=== PATIENT | male | born 1945 | race Caucasian/White ===

== ENCOUNTER 2023-02-13 22:24 | Emergency (ER) | payer OTHER ==
[~2023-02-13] VITALS: Ht 165.1 cm; Wt 75.3 kg
[2023-02-13 22:32] VITALS: BP_SYST 114
[2023-02-13] MEDS ORDERED: KETOROLAC TROMETHAMINE 30 MG VIAL IVP ONE (22:45)
[2023-02-13 23:09] LABS: EOSINOPHILS # (AUTO) 0.1 K/uL (0.0-0.4); EOSINOPHILS % (AUTO) 2.2 % (0.0-4.0); HEMOGLOBIN 12.8 g/dL (14.0-18.0); LYMPHOCYTES # (AUTO) 1.8 K/uL (1.0-5.5); LYMPHOCYTES % (AUTO) 41.6 % (20.5-51.5); MEAN CORPUSCULAR HEMOGLOBIN 30 pg (27-31); MEAN CORPUSCULAR HGB CONC 34 % (32-36); MEAN CORPUSCULAR VOLUME 88 fL (79.0-98.0); MONOCYTES # (AUTO) 0.3 K/uL (0.0-1.0); MONOCYTES % (AUTO) 6.7 % (1.7-9.3); NEUTROPHILS # (AUTO) 2.1 K/uL (1.8-7.7); NEUTROPHILS % (AUTO) 48.5 % (40.0-70.0); PLATELET COUNT (AUTO) 202 K/uL (130-430); RED BLOOD CELL COUNT(AUTO) 4.33 MIL/uL (4.2-6.2); RED CELL DISTRIBUTION WIDTH 14.2 % (9.0-15.0); WHITE BLOOD COUNT (AUTO) 4.3 K/uL (4.8-10.8)
[2023-02-13 23:19] LABS: ANION GAP 8 (5-15); CALCIUM 8.6 mg/dL (8.4-11.0); CHLORIDE 100 mmol/L (98-107); CREATININE 1.22 mg/dL (0.55-1.30); GLUCOSE 223 mg/dL (70-99); UREA NITROGEN, BLOOD 18 mg/dL (8-21)
[2023-02-13 23:24] LABS: ALANINE AMINOTRANSFERASE 22 U/L (12-78); ALBUMIN 3.6 g/dL (3.4-4.8); ASPARTATE AMINOTRANSFERASE 16 U/L (10-37); TOTAL BILIRUBIN 0.4 mg/dL (0.0-1.0)
[2023-02-13 23:50] LABS: BILIRUBIN,URINE NEGATIVE (NEGATIVE); BLOOD, URINE NEGATIVE (NEGATIVE); COLOR,URINE YELLOW (YELLOW); GLUCOSE,URINE NEGATIVE (NEGATIVE); KETONES,URINE NEGATIVE (NEGATIVE); LEUKOCYTE ESTERASE ,URINE NEGATIVE (NEGATIVE); NITRITE, URINE NEGATIVE (NEGATIVE); PROTEIN URINE NEGATIVE (NEGATIVE); UROBILINOGEN,URINE 0.2 (0.2-1.0)
[2023-02-13 23:52] LABS: CLARITY/URINE CLEAR (CLEAR)
[2023-02-14] MEDS ORDERED: NAPR-1172 PO (00:59)
[2023-02-14 01:15] VITALS: BP_SYST 142
== END 2023-02-14 01:15 | disposition home or self-care (01) ==
LOC: SED 22:24
DX: M51.36 Other intervertebral disc degeneration, lumbar region (principal); M54.50 Low back pain, unspecified; G89.29 Other chronic pain; E11.9 Type 2 diabetes mellitus without complications; Z79.899 Other long term (current) drug therapy
CPT/HCPCS: 99285; 96374; 72131; 80053; 85025; 36415; 76376; 81003; J1885

== ENCOUNTER 2024-01-18 21:13 | Emergency (ER) | payer OTHER ==
[~2024-01-18] VITALS: Ht 165.1 cm; Wt 78.9 kg
[~2024-01-18 21:13] MED LIST: NAPR-1172 PO
[2024-01-18 21:20] VITALS: BP_SYST 99; PULSE 65; RESP 20; TEMP 97; O2SAT 98
[2024-01-18 22:24] LABS: BASOPHILS # (AUTO) 0.1 K/uL (0.0-0.2); EOSINOPHILS # (AUTO) 0.2 K/uL (0.0-0.4); EOSINOPHILS % (AUTO) 2.2 % (0.0-4.0); HEMATOCRIT 34.7 % (36-54); HEMOGLOBIN 11.9 g/dL (14.0-18.0); LYMPHOCYTES # (AUTO) 2.4 K/uL (1.0-5.5); LYMPHOCYTES % (AUTO) 34.1 % (20.5-51.5); MEAN CORPUSCULAR HEMOGLOBIN 30 pg (27-31); MEAN CORPUSCULAR HGB CONC 34 % (32-36); MEAN CORPUSCULAR VOLUME 87 fL (79.0-98.0); MONOCYTES # (AUTO) 0.5 K/uL (0.0-1.0); MONOCYTES % (AUTO) 7.1 % (1.7-9.3); NEUTROPHILS % (AUTO) 55.6 % (40.0-70.0); PLATELET COUNT (AUTO) 218 K/uL (130-430); RED BLOOD CELL COUNT(AUTO) 3.99 MIL/uL (4.2-6.2); RED CELL DISTRIBUTION WIDTH 14.8 % (9.0-15.0); WHITE BLOOD COUNT (AUTO) 7.1 K/uL (4.8-10.8)
[2024-01-18 22:34] LABS: ANION GAP 12 (5-15); CARBON DIOXIDE 27 mmol/L (23-29); CHLORIDE 104 mmol/L (98-107); CREATININE 1.51 mg/dL (0.55-1.30); GLUCOSE 112 mg/dL (74-106); POTASSIUM 4.5 mmol/L (3.5-5.1); SODIUM SERUM 143 mmol/L (136-145); UREA NITROGEN, BLOOD 29 mg/dL (8-21)
[2024-01-18 22:42] LABS: ALANINE AMINOTRANSFERASE 12 U/L (12-78); ALBUMIN 3.5 g/dL (3.4-4.8); ASPARTATE AMINOTRANSFERASE 10 U/L (10-37); TOTAL BILIRUBIN 0.3 mg/dL (0.0-1.0); TOTAL PROTEIN, SERUM 7.1 g/dL (6.4-8.3)
[2024-01-18] MEDS: NACL 0.9% 1,000 ML IV ONE (23:04)
[2024-01-19] MEDS: HYDROcodone/ACETAMIN 5-325 MG TAB (NORCO/ VICODIN) PO ONE (00:07)
[2024-01-19 00:39] VITALS: BP_SYST 133; PULSE 71; RESP 19; TEMP 97.7; O2SAT 95
== END 2024-01-19 00:39 | disposition home or self-care (01) ==
LOC: SED 21:13
DX: I95.9 Hypotension, unspecified (principal); E86.0 Dehydration; R42 Dizziness and giddiness; Z79.899 Other long term (current) drug therapy
CPT/HCPCS: 99284; 96360; 70450; 80053; 85025; 84484; 36415; 82948; J7030

== ENCOUNTER 2024-07-04 01:40 | Inpatient (IN) | payer OTHER ==
[~2024-07-04] VITALS: Ht 165.1 cm; Wt 78.9 kg
[2024-07-04 01:52] VITALS: BP_SYST 133; PULSE 74; RESP 18; TEMP 98.2; O2SAT 97
[2024-07-04] MEDS: KETOROLAC TROMETHAMINE 30 MG VIAL IM ONE (02:18)
[2024-07-04 02:26] LABS: BASOPHILS # (AUTO) 0.2 K/uL (0.0-0.2); BASOPHILS % (AUTO) 1.6 % (0.0-2.0); EOSINOPHILS # (AUTO) 0.1 K/uL (0.0-0.4); HEMATOCRIT 37.3 % (36-54); HEMOGLOBIN 12.9 g/dL (14.0-18.0); LYMPHOCYTES # (AUTO) 1.4 K/uL (1.0-5.5); LYMPHOCYTES % (AUTO) 14.6 % (20.5-51.5); MEAN CORPUSCULAR HEMOGLOBIN 30 pg (27-31); MEAN CORPUSCULAR HGB CONC 35 % (32-36); MEAN CORPUSCULAR VOLUME 88 fL (79.0-98.0); MONOCYTES # (AUTO) 0.5 K/uL (0.0-1.0); MONOCYTES % (AUTO) 4.8 % (1.7-9.3); NEUTROPHILS # (AUTO) 7.5 K/uL (1.8-7.7); PLATELET COUNT (AUTO) 229 K/uL (130-430); RED BLOOD CELL COUNT(AUTO) 4.26 MIL/uL (4.2-6.2); RED CELL DISTRIBUTION WIDTH 14.7 % (9.0-15.0); WHITE BLOOD COUNT (AUTO) 9.6 K/uL (4.8-10.8)
[2024-07-04 02:48] LABS: ALANINE AMINOTRANSFERASE 16 U/L (12-78); ANION GAP 8 (5-15); ASPARTATE AMINOTRANSFERASE 15 U/L (10-37); BILIRUBIN,DIRECT 0.1 mg/dL (0.0-0.3); CALCIUM 9.3 mg/dL (8.4-11.0); CARBON DIOXIDE 30 mmol/L (23-29); CHLORIDE 98 mmol/L (98-107); CREATININE 1.36 mg/dL (0.55-1.30); GLUCOSE 248 mg/dL (74-106); LIPASE 32 U/L (16-77); POTASSIUM 4.2 mmol/L (3.5-5.1); SODIUM SERUM 136 mmol/L (136-145); TOTAL BILIRUBIN 0.5 mg/dL (0.0-1.0); TOTAL PROTEIN, SERUM 7.9 g/dL (6.4-8.3); UREA NITROGEN, BLOOD 19 mg/dL (8-21)
[2024-07-04] MEDS: PIPERACILLIN/TAZO 3.375 GM in NS 50 ML IV ONE (04:03)
[2024-07-04] MEDS: MORPHINE 2 MG/ML INJ. SYRINGE IVP ONE (04:03)
[2024-07-04] MEDS ORDERED: PIPERACILLIN/TAZOBACTAM 3.375 GM/VIAL (ZOSYN) IV ONE (04:03)
[2024-07-04] MEDS ORDERED: TIZA-185 PO (07:29)
[2024-07-04] MEDS ORDERED: CLOP75TA32 PO (07:29)
[2024-07-04] MEDS ORDERED: INSU100I28 (07:29)
[2024-07-04] MEDS ORDERED: PANT40TA45 PO (07:29)
[2024-07-04] MEDS ORDERED: METF-381 PO (07:29)
[2024-07-04] MEDS ORDERED: CHOL500013 PO (07:29)
[2024-07-04] MEDS: D5/0.45 NS 1,000 ML IV STA (07:30)
[2024-07-04] MEDS ORDERED: NALOXONE HCL 0.4 MG/ML AMP (NARCAN) IVP PRN (08:00)
[2024-07-04] MEDS: MORPHINE 2 MG/ML INJ. SYRINGE IVP PRN (08:25)
[2024-07-04] MEDS ORDERED: LORazepam 2 MG/ML VIAL IVP PRN (08:30)
[2024-07-04] MEDS ORDERED: ONDANSETRON HCL 4 MG/2 ML VIAL IVP PRN (08:30)
[2024-07-04] MEDS: HYDROmorphone 2 MG/ML VIAL ONE (10:03)
[2024-07-04 11:27] LABS: PROTHROMBIN TIME 10.9 SECS (9.5-12.5)
[2024-07-04] MEDS: PANTOPRAZOLE SODIUM 40 MG TAB PO ONE (12:04)
[2024-07-04] MEDS ORDERED: INSULIN REGULAR, HUMAN 10 UNITS/0.1 ML, 3 ML VIAL ONE (12:10)
[2024-07-04 12:12] LABS: BILIRUBIN,URINE NEGATIVE (NEGATIVE); BLOOD, URINE NEGATIVE (NEGATIVE); CLARITY/URINE CLEAR (CLEAR); COLOR,URINE YELLOW (YELLOW); GLUCOSE,URINE TRACE (NEGATIVE); KETONES,URINE NEGATIVE (NEGATIVE); LEUKOCYTE ESTERASE ,URINE NEGATIVE (NEGATIVE); NITRITE, URINE NEGATIVE (NEGATIVE); PROTEIN URINE NEGATIVE (NEGATIVE); UROBILINOGEN,URINE 0.2 (0.2-1.0)
[2024-07-04] MEDS: INSULIN REGULAR, HUMAN 100 UNITS/ML, 3 ML VIAL (humuLIN R) SUBCUT PRN (12:12)
[2024-07-04] MEDS: PIPERACILLIN/TAZO 3.375/DEX-IS 50 ML IV SCH (13:00)
[2024-07-04] MEDS: CHOLECALCIFEROL (VITAMIN D3) 5,000 UNIT TABLET PO ONE (13:02)
[2024-07-04 14:46] VITALS: BP_SYST 146; PULSE 84; RESP 16; TEMP 100.9; TEMP 98.9; O2SAT 94
[2024-07-04 16:00] VITALS: BP_SYST 147; PULSE 85; RESP 19; TEMP 99.3; O2SAT 91
[2024-07-04] MEDS ORDERED: ACETAMINOPHEN 325 MG TABLET PO PRN (16:00)
[2024-07-04 16:06] VITALS: O2SAT 98
[2024-07-04] MEDS: ACETAMINOPHEN 325 MG TABLET PO PRN (16:32)
[2024-07-04 17:00] VITALS: BP_SYST 114; PULSE 84; RESP 18; TEMP 98.4; O2SAT 96
[2024-07-04 20:00] VITALS: O2SAT 96
[2024-07-04] MEDS: metFORMIN HCL 500 MG TABLET PO SCH (21:58)
[2024-07-04] MEDS: tiZANidine HCL 4 MG TABLET PO SCH (22:03)
[2024-07-05 07:44] LABS: BASOPHILS % (AUTO) 0.2 % (0.0-2.0); EOSINOPHILS % (AUTO) 0.1 % (0.0-4.0); HEMATOCRIT 33.6 % (36-54); HEMOGLOBIN 11.2 g/dL (14.0-18.0); LYMPHOCYTES # (AUTO) 2.4 K/uL (1.0-5.5); LYMPHOCYTES % (AUTO) 17.7 % (20.5-51.5); MEAN CORPUSCULAR HEMOGLOBIN 30 pg (27-31); MEAN CORPUSCULAR HGB CONC 34 % (32-36); MEAN CORPUSCULAR VOLUME 88 fL (79.0-98.0); MONOCYTES # (AUTO) 0.8 K/uL (0.0-1.0); MONOCYTES % (AUTO) 6.2 % (1.7-9.3); NEUTROPHILS # (AUTO) 10.1 K/uL (1.8-7.7); NEUTROPHILS % (AUTO) 75.8 % (40.0-70.0); PLATELET COUNT (AUTO) 216 K/uL (130-430); RED BLOOD CELL COUNT(AUTO) 3.81 MIL/uL (4.2-6.2); RED CELL DISTRIBUTION WIDTH 14.8 % (9.0-15.0); WHITE BLOOD COUNT (AUTO) 13.3 K/uL (4.8-10.8)
[2024-07-05 07:45] VITALS: BP_SYST 125; PULSE 81; RESP 14; TEMP 98.6; O2SAT 95
[2024-07-05 07:51] LABS: ANION GAP 7 (5-15); CALCIUM 8.7 mg/dL (8.4-11.0); CARBON DIOXIDE 28 mmol/L (23-29); CHLORIDE 97 mmol/L (98-107); CREATININE 1.42 mg/dL (0.55-1.30); GLUCOSE 286 mg/dL (74-106); POTASSIUM 3.6 mmol/L (3.5-5.1); SODIUM SERUM 132 mmol/L (136-145); UREA NITROGEN, BLOOD 14 mg/dL (8-21)
[2024-07-05 08:30] VITALS: O2SAT 95
[2024-07-05] MEDS: CHOLECALCIFEROL (VITAMIN D3) 5,000 UNIT TABLET PO SCH (08:53)
[2024-07-05] MEDS: PANTOPRAZOLE SODIUM 40 MG TAB PO SCH (08:55)
[2024-07-05 16:42] VITALS: BP_SYST 158; PULSE 78; RESP 15; TEMP 98.7; O2SAT 95
[2024-07-05 20:00] VITALS: BP_SYST 143; PULSE 76; RESP 16; TEMP 98.3; O2SAT 94; O2SAT 96
[2024-07-06] VITALS (8 sets, daily range): BP systolic 133–155; PULSE 61–72; RESP 16–20; TEMP 97.8–98.2; O2SAT 94–95
[2024-07-06 07:25] LABS: BASOPHILS # (AUTO) 0.1 K/uL (0.0-0.2); BASOPHILS % (AUTO) 0.7 % (0.0-2.0); EOSINOPHILS # (AUTO) 0.1 K/uL (0.0-0.4); EOSINOPHILS % (AUTO) 0.7 % (0.0-4.0); HEMATOCRIT 33.7 % (36-54); HEMOGLOBIN 11.6 g/dL (14.0-18.0); LYMPHOCYTES # (AUTO) 2.2 K/uL (1.0-5.5); LYMPHOCYTES % (AUTO) 24.1 % (20.5-51.5); MEAN CORPUSCULAR HEMOGLOBIN 30 pg (27-31); MEAN CORPUSCULAR HGB CONC 34 % (32-36); MEAN CORPUSCULAR VOLUME 88 fL (79.0-98.0); MONOCYTES # (AUTO) 0.5 K/uL (0.0-1.0); MONOCYTES % (AUTO) 5.3 % (1.7-9.3); NEUTROPHILS # (AUTO) 6.4 K/uL (1.8-7.7); NEUTROPHILS % (AUTO) 69.2 % (40.0-70.0); PLATELET COUNT (AUTO) 225 K/uL (130-430); RED BLOOD CELL COUNT(AUTO) 3.84 MIL/uL (4.2-6.2); RED CELL DISTRIBUTION WIDTH 14.2 % (9.0-15.0); WHITE BLOOD COUNT (AUTO) 9.2 K/uL (4.8-10.8)
[2024-07-06 07:40] LABS: ERYTHROCYTE SEDIMENTATION RATE 82 MM/HR (0-15)
[2024-07-06 07:50] LABS: ALANINE AMINOTRANSFERASE 27 U/L (12-78); ALBUMIN 2.9 g/dL (3.4-4.8); ANION GAP 6 (5-15); ASPARTATE AMINOTRANSFERASE 26 U/L (10-37); CALCIUM 9.1 mg/dL (8.4-11.0); CARBON DIOXIDE 29 mmol/L (23-29); CHLORIDE 99 mmol/L (98-107); CREATININE 1.26 mg/dL (0.55-1.30); GLUCOSE 229 mg/dL (74-106); POTASSIUM 3.7 mmol/L (3.5-5.1); SODIUM SERUM 134 mmol/L (136-145); TOTAL BILIRUBIN 0.8 mg/dL (0.0-1.0); TOTAL PROTEIN, SERUM 7.1 g/dL (6.4-8.3); UREA NITROGEN, BLOOD 11 mg/dL (8-21)
[2024-07-07 00:35] VITALS: BP_SYST 139; PULSE 60; RESP 18; TEMP 98.6; O2SAT 94
[2024-07-07 08:00] VITALS: O2SAT 96
[2024-07-07 08:35] VITALS: BP_SYST 159; PULSE 67; RESP 18; TEMP 97.5; O2SAT 96
[2024-07-07] MEDS: MIDAZOLAM HCL 2 MG/2 ML VIAL (VERSED) ONE (09:17)
[2024-07-07] MEDS: fentaNYL CITRATE/PF 100 MCG/2 ML AMP ONE ×2 (09:17→11:54)
[2024-07-07] MEDS: ACETAMINOPHEN I.V. 1000 MG 100 ML IV ONE (09:17)
[2024-07-07] MEDS ORDERED: fentaNYL CITRATE/PF 100 MCG/2 ML AMP IVP PRN (10:00)
[2024-07-07] MEDS ORDERED: NALOXONE HCL 0.4 MG/ML AMP (NARCAN) IVP PRN (10:00)
[2024-07-07] MEDS: LR 1,000 ML IV ONE (10:00)
[2024-07-07] MEDS ORDERED: ONDANSETRON HCL 4 MG/2 ML VIAL IVP PRN (10:00)
[2024-07-07] MEDS ORDERED: ONDANSETRON HCL 4 MG/2 ML VIAL ONE (10:49)
[2024-07-07] MEDS ORDERED: SEVOFLURANE 15 MIN GAS INH ONE (10:49)
[2024-07-07] MEDS ORDERED: BUPIVACAINE /EPINEPHRINE/PF 0.25% 30 ML VIAL ONE (10:49)
[2024-07-07] MEDS ORDERED: GLYCOPYRROLATE 0.2 MG/ML VIAL ONE (10:49)
[2024-07-07] MEDS ORDERED: NS IRRIG SOLN 1000 ML IR ONE (10:49)
[2024-07-07] MEDS ORDERED: WATER FOR IRRIGATION,STERILE 1,000 ML IRRIG.SOLN IR ONE (10:49)
[2024-07-07] MEDS ORDERED: EPINEPHrine HCL 1 MG/ML VIAL ONE (10:49)
[2024-07-07] MEDS ORDERED: NS 1000 ML IV.SOLN IV ONE (10:49)
[2024-07-07] MEDS ORDERED: ROCURONIUM BROMIDE 10 MG/ML (ZEMURON) ONE (10:49)
[2024-07-07] MEDS ORDERED: PROPOFOL 200MG/ 20ML VIAL (DIPRIVAN) IV ONE (10:49)
[2024-07-07] MEDS ORDERED: LR 1,000 ML IV.SOLN IV ONE (10:49)
[2024-07-07] MEDS: hydrALAZINE HCL 20 MG/ML VIAL ONE (10:55)
[2024-07-07] MEDS: HYDROmorphone 1 MG/ML INJ. CARTRIDGE ONE (11:07)
[2024-07-07] MEDS: HYDROmorphone 1 MG/ML INJ. CARTRIDGE IVP PRN (11:07)
[2024-07-07] MEDS: fentaNYL CITRATE/PF 100 MCG/2 ML AMP IVP PRN (11:54)
[2024-07-07] MEDS: hydrALAZINE HCL 20 MG/ML VIAL IV PRN (12:09)
[2024-07-07] MEDS: ONDANSETRON HCL 4 MG/2 ML VIAL ONE (12:23)
[2024-07-07 14:20] LABS: BASOPHILS % (AUTO) 0.5 % (0.0-2.0); EOSINOPHILS % (AUTO) 0.2 % (0.0-4.0); HEMATOCRIT 35.7 % (36-54); LYMPHOCYTES % (AUTO) 13.6 % (20.5-51.5); MEAN CORPUSCULAR HEMOGLOBIN 30 pg (27-31); MEAN CORPUSCULAR HGB CONC 34 % (32-36); MEAN CORPUSCULAR VOLUME 88 fL (79.0-98.0); MONOCYTES # (AUTO) 0.3 K/uL (0.0-1.0); NEUTROPHILS # (AUTO) 6.3 K/uL (1.8-7.7); NEUTROPHILS % (AUTO) 81.7 % (40.0-70.0); PLATELET COUNT (AUTO) 243 K/uL (130-430); RED BLOOD CELL COUNT(AUTO) 4.08 MIL/uL (4.2-6.2); RED CELL DISTRIBUTION WIDTH 14.4 % (9.0-15.0); WHITE BLOOD COUNT (AUTO) 7.7 K/uL (4.8-10.8)
[2024-07-07 14:56] LABS: ANION GAP 9 (5-15); CALCIUM 9.1 mg/dL (8.4-11.0); CARBON DIOXIDE 27 mmol/L (23-29); CHLORIDE 97 mmol/L (98-107); CREATININE 1.14 mg/dL (0.55-1.30); GLUCOSE 248 mg/dL (74-106); SODIUM SERUM 133 mmol/L (136-145); UREA NITROGEN, BLOOD 9 mg/dL (8-21)
[2024-07-07 16:01] VITALS: BP_SYST 138; PULSE 84; RESP 16; TEMP 97.6; O2SAT 97
[2024-07-07 20:00] VITALS: BP_SYST 150; PULSE 94; RESP 17; TEMP 97.1; O2SAT 98
[2024-07-08] MEDS: MORPHINE 4 MG INJ. 4 MG/ML VIAL IVP PRN (00:52)
[2024-07-08 01:04] VITALS: BP_SYST 163; PULSE 87; RESP 17; TEMP 98.2; O2SAT 98
[2024-07-08 07:45] VITALS: BP_SYST 113; PULSE 77; RESP 16; TEMP 98.2; O2SAT 94
[2024-07-08] MEDS ORDERED: hydrALAZINE HCL 20 MG/ML VIAL IVP PRN (10:15)
[2024-07-08 12:13] VITALS: BP_SYST 123; PULSE 72; RESP 16; TEMP 98; O2SAT 93
[2024-07-08 15:22] VITALS: BP_SYST 136; PULSE 87; RESP 16; TEMP 98.5; O2SAT 93
[2024-07-08 20:00] VITALS: BP_SYST 150; PULSE 77; RESP 16; TEMP 97.9; O2SAT 96
[2024-07-09] VITALS (7 sets, daily range): BP systolic 112–155; PULSE 66–94; RESP 14–18; TEMP 97.5–98.4; O2SAT 93–96
[2024-07-09 07:13] LABS: BASOPHILS % (AUTO) 0.7 % (0.0-2.0); EOSINOPHILS # (AUTO) 0.2 K/uL (0.0-0.4); EOSINOPHILS % (AUTO) 3.5 % (0.0-4.0); HEMATOCRIT 34.9 % (36-54); HEMOGLOBIN 11.9 g/dL (14.0-18.0); MEAN CORPUSCULAR HEMOGLOBIN 30 pg (27-31); MEAN CORPUSCULAR HGB CONC 34 % (32-36); MEAN CORPUSCULAR VOLUME 88 fL (79.0-98.0); MONOCYTES # (AUTO) 0.4 K/uL (0.0-1.0); MONOCYTES % (AUTO) 7.3 % (1.7-9.3); NEUTROPHILS # (AUTO) 2.8 K/uL (1.8-7.7); NEUTROPHILS % (AUTO) 52.5 % (40.0-70.0); PLATELET COUNT (AUTO) 296 K/uL (130-430); RED BLOOD CELL COUNT(AUTO) 3.98 MIL/uL (4.2-6.2); RED CELL DISTRIBUTION WIDTH 14.2 % (9.0-15.0); WHITE BLOOD COUNT (AUTO) 5.4 K/uL (4.8-10.8)
[2024-07-09 08:11] LABS: ANION GAP 8 (5-15); CALCIUM 9.4 mg/dL (8.4-11.0); CARBON DIOXIDE 29 mmol/L (23-29); CHLORIDE 98 mmol/L (98-107); CREATININE 1.37 mg/dL (0.55-1.30); GLUCOSE 166 mg/dL (74-106); POTASSIUM 3.7 mmol/L (3.5-5.1); SODIUM SERUM 135 mmol/L (136-145); UREA NITROGEN, BLOOD 12 mg/dL (8-21)
[2024-07-09] MEDS: ASPIRIN 81 MG TABLET(ECOTRIN) PO SCH (09:37)
[2024-07-09] MEDS: hydrALAZINE HCL 25 MG TABLET PO PRN (20:54)
[2024-07-10] MEDS ORDERED: LOSARTAN POTASSIUM 25 MG TABLET PO SCH (09:00)
== END 2024-07-09 23:40 | disposition home or self-care (01) | DRG 398 ==
LOC: SED 01:40 → SMU 06:09 → STU 07-07 20:49 → SMU 07-09 21:49
PROVIDERS: ADMIT Preventive Medicine Preventive Medicine/Occupational Environmental Medicine; ATTEND Specialist
PROC: 0DTJ4ZZ Resection of Appendix, Percutaneous Endoscopic Approach (ICD-10-PCS; principal; 2024-07-07 09:14)
DX: K35.30 Acute appendicitis with localized peritonitis, without perforation or gangrene (principal); S36.112A Contusion of liver, initial encounter; I10 Essential (primary) hypertension; I25.10 Atherosclerotic heart disease of native coronary artery without angina pectoris; E11.65 Type 2 diabetes mellitus with hyperglycemia; X58.XXXA Exposure to other specified factors, initial encounter; I25.2 Old myocardial infarction; Z79.84 Long term (current) use of oral hypoglycemic drugs; Z79.82 Long term (current) use of aspirin; Y93.89 Activity, other specified; Y92.89 Other specified places as the place of occurrence of the external cause; Y99.8 Other external cause status; K57.90 Diverticulosis of intestine, part unspecified, without perforation or abscess without bleeding
CPT/HCPCS: 36415; 71046; 74181; 80048; 80053; 80076; 81001; 81003; 82948; 83605; 83690; 85025; 85610; 85651; 85730; 86886; 86900; 86901; 87040; 87081; 88304; 93005; 96365; 97110-GP; 97116-GP; 97530-GP; 99285; C1727; G0378; J0131; J0171; J0360; J1170; J1815; J1885; J2250; J2270; J2405; J2543; J2704; J3010; J3490; J7030; J7050; J7120